=== PATIENT | male | born 1940 | race Caucasian/White ===

== ENCOUNTER 2023-12-31 12:31 | Outpatient (CLI) | payer MEDICARE | END 2023-12-31 12:32 | disposition home or self-care (01) | LOC: CSHULT 12:31 | PROVIDERS: ATTEND Urology | DX: R39.14 Feeling of incomplete bladder emptying (principal); N40.1 Benign prostatic hyperplasia with lower urinary tract symptoms; M10.9 Gout, unspecified; N28.1 Cyst of kidney, acquired; Z90.79 Acquired absence of other genital organ(s); N20.0 Calculus of kidney | CPT/HCPCS: 76770 ==